=== PATIENT | female | born 1955 | race Caucasian/White ===

== ENCOUNTER 2021-12-27 17:53 | Emergency (ER) | payer OTHER ==
[2021-12-27] MEDS ORDERED: ACETAMINOPHEN 500 MG TABLET (FP) PO ONE (18:14)
[2021-12-27 18:15] VITALS: BP 166/84; PULSE 74; RESP 18; TEMP 97.6; BMI 24.0
[2021-12-27] MEDS ORDERED: DIPHTH,PERTUSS(ACELL),TET 0.5 ML DISP.SYRIN IM ONE ×2 (18:15→18:23)
[2021-12-27] MEDS ORDERED: ACETAMINOPHEN 500 MG TABLET (FP) ONE (18:23)
[2021-12-27] MEDS ORDERED: ONDANSETRON *ODT* 4 MG TABLET SL ONE (18:24)
[2021-12-27] MEDS ORDERED: ONDANSETRON *ODT* 4 MG TABLET ONE (18:31)
[2021-12-27] MEDS ORDERED: AZITHROMYCIN 500 MG TABLET PO ONE (20:59)
[2021-12-27] MEDS ORDERED: AZITHROMYCIN 250 MG TABLET ONE (21:01)
[2021-12-27] MEDS ORDERED: AMOX TR/POT CLAV 500MG/125MG TABLETS (FP) PO ONE (21:03)
[2021-12-27] MEDS ORDERED: AMOX TR/POT CLAV 500MG/125MG TABLETS (FP) ONE (21:06)
== END 2021-12-27 21:14 | disposition home or self-care (01) ==
LOC: FER 17:53
PROC: 3E0234Z Introduction of Serum, Toxoid and Vaccine into Muscle, Percutaneous Approach (ICD-10-PCS; principal; 2021-12-27)
DX: S02.2XXA Fracture of nasal bones, initial encounter for closed fracture (principal); V18.0XXA Pedal cycle driver injured in noncollision transport accident in nontraffic accident, initial encounter
CPT/HCPCS: 70450-TC; 70486-TC; 72125-TC; 90715; 99284-25; Q0162